=== PATIENT | female | born 2000 | race Caucasian/White ===

== ENCOUNTER 2020-01-20 13:17 | Inpatient (IN) | payer OTHER ==
[~2020-01-20 13:17] MED LIST: Bupivacaine/Epinephrine 0.25% 30 ML VIAL ONE
[2020-01-20 20:14] VITALS: BMI 24.5
[2020-01-20] MEDS ORDERED: Docusate 100 MG CAP PO PRN (21:28)
[2020-01-20] MEDS ORDERED: Promethazine HCl 25 MG/ML VIAL IM PRN (21:28)
[2020-01-20] MEDS ORDERED: Zolpidem Tartrate 5 MG TAB PO PRN (21:28)
[2020-01-20] MEDS ORDERED: Ibuprofen 800 MG TAB PO PRN (21:28)
[2020-01-20] MEDS ORDERED: Misoprostol 200 MCG TAB PR PRN (21:28)
[2020-01-20] MEDS ORDERED: hydrALAZINE 20 MG/ML VIAL SLOW IVP PRN (21:28)
[2020-01-20] MEDS ORDERED: Butorphanol Tartrate 1 MG/ML VIAL SLOW IVP PRN (21:28)
[2020-01-20] MEDS ORDERED: Lidocaine 1% (PF) 30 ML VIAL SC PRN (21:28)
[2020-01-20] MEDS ORDERED: Carboprost 250 MCG/ML AMP IM PRN (21:28)
[2020-01-20] MEDS ORDERED: HYDROcodone/Acetaminophen 5/325 mg Tablet PO PRN ×2 (21:28)
[2020-01-20] MEDS ORDERED: Diphenoxylate HCl/Atropine Tablet PO PRN ×2 (21:28)
[2020-01-20] MEDS ORDERED: Methylergonovine 0.2 MG/ML VIAL IM PRN (21:28)
[2020-01-20] MEDS ORDERED: Ondansetron PF 4 MG/2 ML Vial IVP PRN (21:28)
[2020-01-20] MEDS ORDERED: Acetaminophen 500 MG TAB PO PRN (21:28)
[2020-01-20] MEDS ORDERED: NS w/ Oxytocin 10 units 500 ML IV SCH ×2 (21:30)
[2020-01-20] MEDS ORDERED: Penicillin G Potassium 5 MILL.UNITS in Sodium Chloride 0.9% 100 ML IVPB SCH (22:00)
[2020-01-20 22:20] LABS: Hemoglobin 11.6 g/dL (12.0-16.0); Mean Corpuscular HGB CONC 33.7 g/dL (32.0-36.0); Mean Corpuscular Hemoglobin 30.9 pg (25.0-35.0); Mean Corpuscular Volume 91.8 fL (78.0-98.0); Mean Platelet Volume 8.1 fL (7.4-10.4); Platelet Count 305 thou/uL (130-400); RBC Distribution Width 12.5 % (11.5-14.5); Red Blood Cell (RBC) Count 3.76 mill/uL (4.00-5.20); White Blood Cell (WBC) Count 11.8 thou/uL (4.8-10.8)
[2020-01-20] MEDS: Misoprostol 100 MCG TAB VAG SCH (22:23)
[2020-01-20 22:59] LABS: HBSAg Index 0.19 S/CO (0-0.99); Hep B Surf Ag Non-Reactive S/CO (NonReactive)
[2020-01-20 22:59] LABS: Syphilis Antibody Nonreactive (Nonreactive); Syphilis Antibody Index 0.05 S/CO (<1.00 Non-Reactive)
[2020-01-21] MEDS ORDERED: Fentanyl 4 mcg/Bup 0.1% Cadd 100 ML ONE (04:25)
[2020-01-21] MEDS ORDERED: Fentanyl 100 MCG/2 ML VIAL ONE (05:06)
[2020-01-21] MEDS: Lactated Ringer's 1,000 ML IV SCH (05:32)
[2020-01-21] MEDS ORDERED: Naloxone HCl 0.4 mg/ml Vial IVP PRN ×2 (06:01)
[2020-01-21] MEDS ORDERED: Lactated Ringer's 500 ML IV PRN (06:01)
[2020-01-21] MEDS ORDERED: Acetaminophen 325 MG TAB PO PRN (06:01)
[2020-01-21] MEDS ORDERED: diphenhydrAMINE 50 MG/ML VIAL IVP PRN (06:01)
[2020-01-21] MEDS ORDERED: Promethazine HCl 25 MG/ML VIAL IM PRN ×2 (06:01→13:45)
[2020-01-21] MEDS ORDERED: EPHEDRINE 25 MG/5 ML SYRINGE SLOW IVP PRN (06:01)
[2020-01-21] MEDS ORDERED: Ondansetron PF 4 MG/2 ML Vial IVP PRN ×2 (06:01→13:45)
[2020-01-21] MEDS ORDERED: Communication Order-Pharmacy FS SCH (06:15)
[2020-01-21] MEDS ORDERED: Fentanyl 4 mcg/Bupivacaine 0.1% Cassette 100 ML EPIDURAL SCH (06:15)
[2020-01-21] MEDS: Penicillin G 2.5 MILL.units 2.5 MILL.UNITS in Premix Bag 1 BAG IVPB SCH (09:02)
[2020-01-21] MEDS ORDERED: Misoprostol 200 MCG TAB ONE (10:30)
[2020-01-21] MEDS: NS / Oxytocin 40 units/1000ml 1,000 ML IV PRN ×2 (10:48→12:22)
--- NOTE | 2020-01-21 13:36 | PDOC.LDHP ---
Labor and Delivery H&P Chief complaint: scheduled induction HPI: 19 y/o at 39 weeks for term induction of labor. Current gestational age (weeks): 39 Grav: 1 Para: 0 Current complications: none Abnormal US findings: No Current medications: pre-uvaldo vitamins Allergies/Adverse Reactions: Allergies Allergy/AdvReac Type Severity Reaction Status Date / Time No Known Allergies Allergy Verified 01/20/20 20:05 Social history: none - Physical Exam Vital signs reviewed and normal: yes General: NAD, resting Heart: RRR Lungs: CTAB Abdomen: gravid Extremeties: no edema FHT: category 1 - Assessment L&D Assessment: elective induction at term - Plan Plan: admit to L&D, cervical ripening
[2020-01-21] MEDS ORDERED: Preparation H Ointment 28 GM TUBE PR PRN (13:45)
[2020-01-21] MEDS ORDERED: diphenhydrAMINE 25 MG CAP PO PRN (13:45)
[2020-01-21] MEDS ORDERED: Zolpidem Tartrate 5 MG TAB PO PRN (13:45)
[2020-01-21] MEDS ORDERED: Adacel (T-DAP) 0.5 ML SYRINGE IM ONE (13:45)
[2020-01-21] MEDS ORDERED: NS / Oxytocin 40 units/1000ml 1,000 ML IV SCH (13:45)
[2020-01-21] MEDS ORDERED: Varicella virus, LIVE 0.5 ML VIAL SC ONE (13:45)
[2020-01-21] MEDS ORDERED: Benzocaine-Menthol 82.5 ML CAN TOP PRN (13:45)
[2020-01-21] MEDS ORDERED: Bisacodyl 10 MG SUPP PR PRN (13:45)
[2020-01-21] MEDS ORDERED: Measles/Mumps/Rubella 10 MCG/0.5 ML VIAL SC ONE (13:45)
[2020-01-21] MEDS ORDERED: Milk Of Magnesia 30 ML UDCUP PO PRN (13:45)
[2020-01-21] MEDS ORDERED: Lanolin Ointment 7 GM TUBE TOP PRN (13:45)
[2020-01-21] MEDS ORDERED: hydrALAZINE 20 MG/ML VIAL SLOW IVP PRN (13:45)
[2020-01-21] MEDS ORDERED: HYDROcodone/Acetaminophen 5/325 mg Tablet PO PRN ×2 (13:45)
[2020-01-21] MEDS: Ibuprofen 800 MG TAB PO SCH ×2 (14:22→21:29)
[2020-01-21] MEDS: Ferrous Sulfate 325 MG TAB PO SCH (15:29)
[2020-01-21] MEDS: Docusate Calcium (SURFAK) 240 MG CAP PO SCH (21:29)
[2020-01-22] MEDS: Ibuprofen 800 MG TAB PO SCH ×3 (05:19→21:38)
[2020-01-22 05:34] LABS: Hemoglobin 9.6 g/dL (12.0-16.0); Mean Corpuscular HGB CONC 32.9 g/dL (32.0-36.0); Mean Corpuscular Hemoglobin 30.9 pg (25.0-35.0); Mean Corpuscular Volume 93.8 fL (78.0-98.0); Platelet Count 256 thou/uL (130-400); RBC Distribution Width 12.4 % (11.5-14.5); White Blood Cell (WBC) Count 14.8 thou/uL (4.8-10.8)
[2020-01-22] MEDS: Penicillin G 2.5 MILL.units 2.5 MILL.UNITS in Premix Bag 1 BAG IVPB SCH ×2 (07:15→07:16)
[2020-01-22] MEDS: Misoprostol 100 MCG TAB VAG SCH ×2 (07:16→07:17)
[2020-01-22] MEDS: Lactated Ringer's 1,000 ML IV SCH (07:17)
[2020-01-22] MEDS: Docusate Calcium (SURFAK) 240 MG CAP PO SCH ×2 (08:00→21:38)
[2020-01-22] MEDS: Ferrous Sulfate 325 MG TAB PO SCH ×2 (08:00→16:33)
[2020-01-22] MEDS: Prenatal Vitamin 1 TAB PO SCH (08:00)
[2020-01-23] MEDS: Ibuprofen 800 MG TAB PO SCH (05:32)
[2020-01-23 08:00] VITALS: BP 103/65; TEMP 97.7
[2020-01-23] MEDS: Ferrous Sulfate 325 MG TAB PO SCH (08:40)
[2020-01-23] MEDS: Docusate Calcium (SURFAK) 240 MG CAP PO SCH (08:41)
[2020-01-23] MEDS: Prenatal Vitamin 1 TAB PO SCH (08:41)
--- NOTE | 2020-01-23 11:23 | PDOC.PP ---
Post Progress Note Post Day #: 1 Subjective: Phone conversation with patient only - in respect of minimizing COVID transmission. Patient is doing very well, breast feeding, tolerating reg diet. She desires to go home tomorrow. F/U in clinic in 2 week. No complaints other than expected soreness around her vaginal stitches. PO intake tolerated: yes Flatus: yes Ambulation: yes Vital Signs (12 hours) Temp Pulse Resp BP Pulse Ox 01/23/20 08:37 98 01/23/20 07:59 97.7 F 64 20 103/65 98 Weight Weight 152 lb - Physical Examination General: NAD Cardiovascular: no m/r/g, RRR Respiratory: clear to auscultation bilaterally, non-labored breathing Abdominal: + bowel sounds, lochia Extremities: negative homans (B) Neurological: no gross focal deficits Psychiatric: A&Ox3, normal affect Result Diagrams: 01/22/20 05:23 Additional Labs: Post Labs Blood Type O POSITIVE 01/21/20 00:07 Hep Bs Antigen Non-Reactive S/CO (NonReactive) 01/20/20 21:51
== END 2020-01-23 14:17 | disposition home or self-care (01) | DRG 807 ==
LOC: L&D 19:34 → 3SW 01-21 14:40
PROVIDERS: ADMIT Obstetrics & Gynecology; ATTEND Obstetrics & Gynecology
PROC: 10E0XZZ Delivery of Products of Conception, External Approach (ICD-10-PCS; principal; 2020-01-20)
PROC: 10907ZC Drainage of Amniotic Fluid, Therapeutic from Products of Conception, Via Natural or Artificial Opening (ICD-10-PCS; 2020-01-20)
PROC: 3E0P7VZ Introduction of Hormone into Female Reproductive, Via Natural or Artificial Opening (ICD-10-PCS; 2020-01-20)
PROC: 3E033VJ Introduction of Other Hormone into Peripheral Vein, Percutaneous Approach (ICD-10-PCS; 2020-01-20)
DX: O99.824 Streptococcus B carrier state complicating childbirth (principal); Z37.0 Single live birth; O70.0 First degree perineal laceration during delivery; Z3A.39 39 weeks gestation of pregnancy
CPT/HCPCS: 36415; 51702; 85027; 86780; 86850; 86900; 86901; 87340; J2210; J2405; J2540; J2590; J3010; J3490